=== PATIENT | female | born 1935 | race Caucasian/White ===

== ENCOUNTER 2016-10-11 18:09 | Emergency (ER) | payer OTHER ==
[~2016-10-11] VITALS: Wt 71.5 kg
[~2016-10-11 18:09] MED LIST: ALLO300T2 PO; BACL10TA PO; CALC500T12 PO; GABA100C14 PO; GLYB2.5T2 PO; HYD25 PO; LEVO200T6 PO; METF850T PO; METO-429 PO
[2016-10-11 20:35] LABS: BASOPHILS % 0.4 % (0.0-2.0); EOSINOPHILS # 0.1 10^3/ul (0.0-0.5); HEMATOCRIT 43.6 % (37.0-47.0); HEMOGLOBIN 14.4 g/dl (12.0-16.0); LYMPHOCYTES % 20.6 % (15.0-51.0); MEAN CORPUSCULAR HEMOGLOBIN 29.3 pg (29.0-33.0); MEAN CORPUSCULAR VOLUME 88.8 fl (82.0-101.0); MEAN PLATELET VOLUME 10.4 fl (7.4-10.4); MONOCYTE # 0.6 10^3/ul (0.3-0.9); MONOCYTES % 5.9 % (0.0-11.0); NEUTROPHILS % 71.7 % (39.0-77.0); PLATELET COUNT 289 10^3/UL (140-415); RED BLOOD COUNT 4.91 10^6/ul (4.20-5.40); RED CELL DISTRIBUTION WIDTH 13.1 % (11.5-14.5); WHITE BLOOD COUNT 9.7 10^3/ul (4.8-10.8)
--- NOTE | 2016-10-11 21:00 | RADRPT ---
PROCEDURE: XR Foot. CLINICAL INDICATION: 81-year-old female. Query osteomyelitis. Decubitus ulcer. Melanoma.. TECHNIQUE: Three views of the left foot. COMPARISON: None available. FINDINGS: There is a marker over the lateral aspect of the hind foot. A skin ulcer is not identified on x-ray . Negative for bony destruction or periosteal reaction to indicate osteomyelitis. 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 There is mild midfoot osteoarthritis. There is a large bone spur at the base of the calcaneus with dystroph ic calcification in the plantar fascia and Achilles tendon. IMPRESSION: Negative for evidence of periosteal reaction or bony destruction to indicate osteomyelitis. The ski n ulcer is not well seen with x-ray.. RPTAT: HCTS Physician Darya Date Time Electronically viewed and signed by Elkin Quintana Physician on 10/11/2016 20:59 /
[2016-10-11 21:04] LABS: ALBUMIN 4.5 g/dl (3.3-4.9); ALBUMIN/GLOBULIN RATIO 1.55; BILIRUBIN,INDIRECT 0.3 mg/dl (0-1.1); BILIRUBIN,TOTAL 0.3 mg/dl (0.2-1.3); CALCIUM 8.4 mg/dl (8.4-10.2); CREATININE 0.5 mg/dl (0.44-1.00); POTASSIUM 4.2 mmol/L (3.5-5.1); TOTAL PROTEIN 7.4 g/dl (6.1-8.1)
--- NOTE | 2016-10-11 21:20 | ERD ---
ER Documentation Chief Complaint Date/Time DATE: 10/11/16 TIME: 21:07 Chief Complaint RECHECK ON NON-HEALING WOUND ON LEFT FOOT, NO PAIN REPORTED HPI This 81-year-old female presents to emergency department with family with reports of a left outer heel ulcer. Patient was seen by her primary care physician and sent to emergency department for evaluation. Patient denies the area is painful to touch. She denies difficulty ambulating, fever, or chills. Patient is a diabetic. Family reports they just noticed it lesion today unsure of how long it actually has been there. ROS All systems reviewed and are negative except as per history of present illness. Medications Home Meds Reported Medications Calcium Carbonate* (Oysco-500*) 1 Tab Tablet, 1 TAB PO DAILY, TAB 11/18/13 Levothyroxine Sodium* (Levothyroxine Sodium*) 200 Mcg Tablet, 200 MCG PO AC BREAKFAST, TAB 11/18/13 Baclofen* (Baclofen*) 10 Mg Tablet, 10 MG PO HS, TAB 11/18/13 Metoprolol Tartrate* (Lopressor*) 50 Mg Tablet, 50 MG PO DAILY, TAB 11/18/13 Glyburide* (Glyburide*) 2.5 Mg Tablet, 2.5 MG PO DAILY, TAB 11/18/13 Metformin Hcl* (Metformin Hcl*) 850 Mg Tablet, 850 MG PO TID, TAB 1 1/2 TAB 11/18/13 Hydrochlorothiazide* (Hydrochlorothiazide*) 25 Mg Tab, 25 MG PO DAILY, TAB 11/18/13 Gabapentin* (Gabapentin*) 100 Mg Capsule, 100 MG PO TID, CAP 11/18/13 Allopurinol* (Allopurinol*) 300 Mg Tablet, 300 MG PO DAILY, TAB 11/18/13 Allergies Allergies: Coded Allergies: No Known Allergy (Unverified , 11/18/13) PMhx/Soc History of Surgery: Yes (see note) Anesthesia Reaction: No Hx Neurological Disorder: No Hx Respiratory Disorders: No Hx Cardiac Disorders: Yes (HTN) Hx Psychiatric Problems: No Hx Miscellaneous Medical Probl: Yes (DM) Hx Alcohol Use: No Hx Substance Use: No Hx Tobacco Use: No Smoking Status: Never smoker Physical Exam Vitals Vital Signs Date Time Temp Pulse Resp B/P Pulse Ox O2 Delivery O2 Flow Rate FiO2 10/11/16 21:30 97.0 75 16 156/73 97 Room Air 10/11/16 18:14 97.0 84 17 185/79 98 Physical Exam Const: Well-nourished, well-hydrated, well-appearing in no acute distress Head: Atraumatic Eyes: Normal Conjunctiva, PERRLA, EOMI ENT: Normal External Ears, Nose and Mouth mucous membranes moist. Neck: Full range of motion..~ No meningismus. Resp: Chest rises and falls symmetrically, respirations even and unlabored no respiratory distress Cardio: Abd: Skin: Left heel outer aspect presents with a 1.5 cm x 0.7 cm black lesion soft nontender to palpation on a brown plaque also soft and nontender, skin is intact, no evidence of oozing or discharge from the lesion site. Skin is warm to touch normal temperature. Back: Ext: Lower Extremity -left foot Skin: No laceration. Left heel outer aspects presents with a 1.5 cm x 0.7 cm black lesion soft nontender to palpation on a brown plaque also soft and nontender. Compartments: Soft Motor: Full active range of motion hip/knee/ankle/foot Sensation: Intact to light touch FDWS/MF/LF/P surfaces. Bones: Nontender pelvis/knee/proximal tibia/ malleoli/foot Joints: No effusion or laxity Pulses/Perfusion: 2+ DP, Capillary refill < 2 seconds Neur: Awake and alert Psych: Normal Mood and Affect Result Diagram: 10/11/16201910/11/162019 Results 24 hrs Laboratory Tests Test 10/11/16 20:20 10/11/16 20:23 White Blood Count 9.710^3/ul Red Blood Count 4.9110^6/ul Hemoglobin 14.4g/dl Hematocrit 43.6% Mean Corpuscular Volume 88.8fl Mean Corpuscular Hemoglobin 29.3pg Mean Corpuscular Hemoglobin Concent 33.0g/dl Red Cell Distribution Width 13.1% Platelet Count 78084^3/UL Mean Platelet Volume 10.4fl Neutrophils % 71.7% Lymphocytes % 20.6% Monocytes % 5.9% Eosinophils % 1.0% Basophils % 0.4% Nucleated Red Blood Cells % 0.0/100WBC Neutrophils # 7.010^3/ul Lymphocytes # 2.010^3/ul Monocytes # 0.610^3/ul Eosinophils # 0.110^3/ul Basophils # 0.010^3/ul Nucleated Red Blood Cells # 0.010^3/ul Sodium Level 144mmol/L Potassium Level 4.2mmol/L Chloride Level 100mmol/L Carbon Dioxide Level 28mmol/L Anion Gap 20 Blood Urea Nitrogen 15mg/dl Creatinine 0.50mg/dl Glucose Level 124mg/dl Calcium Level 8.4mg/dl Total Bilirubin 0.3mg/dl Direct Bilirubin 0.00mg/dl Indirect Bilirubin 0.3mg/dl Aspartate Amino Transf (AST/SGOT) 27IU/L Alanine Aminotransferase (ALT/SGPT) 34IU/L Alkaline Phosphatase 80IU/L Total Protein 7.4g/dl Albumin 4.5g/dl Globulin 2.90g/dl Albumin/Globulin Ratio 1.55 Lactic Acid Level 1.8mmol/L Procedures/MDM PROCEDURE: XR Foot. CLINICAL INDICATION: 81-year-old female. Query osteomyelitis. Decubitus ulcer. Melanoma.. TECHNIQUE: Three views of the left foot. COMPARISON: None available. FINDINGS: There is a marker over the lateral aspect of the hind foot. A skin ulcer is not identified on x-ray. Negative for bony destruction or periosteal reaction to indicate osteomyelitis. 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 There is mild midfoot osteoarthritis. There is a large bone spur at the base of the calcaneus with dystrophic calcification in the plantar fascia and Achilles tendon. IMPRESSION: Negative for evidence of periosteal reaction or bony destruction to indicate osteomyelitis. The skin ulcer is not well seen with x-ray.. Physician Darya Date Time Electronically viewed and signed by Physician Darya on 10/11/2016 20: 59 This 81-year-old female presents to emergency department for evaluation of a skin lesion on her left foot patient was seen at primary physician's office and sent to emergency department for evaluation. Patient is a diabetic, skin is clean and dry without evidence of other lesions fissures. Patient denies pain, lesion is also soft, a foot x-ray obtained to rule out osteomyelitis, with documentation negative for evidence of periosteal reaction or bony destruction indicating osteomyelitis. This skin ulcer is not well seen within x-ray. No suspicion for osteomyelitis, cellulitis, DVT, compartment syndrome, or fracture of any kind. Patient will be sent to amputation and wound center for further evaluation should follow-up with primary care physician for referral to dermatology if lesion is cleared by wound clinic. Patient and family verbalized understanding, instructed to return to emergency department if wound becomes painful, tender, starts oozing discharge. I feel the patient is stable for discharge at this time. I have discussed results, examination findings, the treatment plan with the patient and family present prior to discharge. Indications for emergent reevaluation, side effects of medication were also discussed. All questions were answered. Patient verbalizes understanding and agrees with plan of care. Departure Diagnosis: Primary Impression: Heel lesion Condition: Good Patient Instructions: Skin Ulcer, Simple Referrals: [facility] Additional Instructions: Thank you for for coming to [facility] for your care today. Please ask your nurse or provider if you have questions about your care today and do not leave until all your questions have been answered. Please use any medications given as directed and follow-up with your doctor (or the doctor you were referred to) in the next 2-3 days. If you do not have a primary care doctor you may follow up at the [facility] (listed below). You may also use motrin and tylenol as needed for fever and/or pain unless instructed otherwise by your provider or nurse. Indications for more urgent follow-up have been discussed, but you may return to the Emergency Department at ANY time for any worrisome or worsening symptoms. If you have abdominal pain, please know that no test or exam you received is perfect and you should follow up within 8 hours for continued pain. If you had any imaging studies today, such as an X-Ray or CT Scan, these studies will be reviewed later by a radiologist. You will be called if there are important findings that were not identified today, so make sure the contact information you provided at registration is correct. If you received any narcotic pain control medicine today, such as Vicodin, Morphine or Dilaudid, your coordination and judgment may be affected for a number of hours. Please do not drive or operate heavy machinery, and you may want someone to assist you at home. If you were given a prescription for narcotic medication, be aware that it is very addictive- use sparingly and only if necessary. SHERIDAN ROCHA Oct 11, 2016 21:19
[2016-10-11 21:30] VITALS: BP 156/73; PULSE 75; RESP 16; TEMP 97
== END 2016-10-11 21:35 | disposition home or self-care (01) ==
LOC: FTE 18:09
DX: L98.9 Disorder of the skin and subcutaneous tissue, unspecified (principal); I10 Essential (primary) hypertension; E11.9 Type 2 diabetes mellitus without complications; Z79.84 Long term (current) use of oral hypoglycemic drugs
CPT/HCPCS: 73630; 80053; 83605; 85025; 87040; Z7502

== ENCOUNTER 2017-01-29 13:09 | Day surgery (SDC) | payer OTHER ==
[~2017-01-29] VITALS: Ht 147.3 cm; Wt 70.8 kg
[~2017-01-29 13:09] MED LIST changes: -HYD25 PO; +HYDR25TA6 PO
[2017-01-29 14:12] VITALS: Ht 147.3 cm; Wt 70.8 kg
[2017-01-29 14:14] VITALS: BP 148/73; PULSE 94; RESP 16
[2017-01-29] MEDS ORDERED: CEFAZOLIN 2 GM/50 ML (PMX) 50 ML IVPB SCH (15:00)
[2017-01-29] MEDS ORDERED: POLYMYXIN/BACITRACIN 1L IRRIG ONE (16:26)
[2017-01-29] MEDS ORDERED: ONDANSETRON 4 MG INJ ONE (16:27)
[2017-01-29] MEDS ORDERED: LIDOCAINE 2% (SDV) 5 ML INJ ONE (16:27)
[2017-01-29] MEDS ORDERED: CEFAZOLIN 1 GM INJ ONE (16:27)
[2017-01-29] MEDS ORDERED: NEOSTIGMINE 3 MG/3 ML SYRINGE ONE (16:27)
[2017-01-29] MEDS ORDERED: PROPOFOL 20 ML ONE (16:28)
[2017-01-29] MEDS ORDERED: hydrALAzine 20 MG INJ IV PRN (16:30)
[2017-01-29] MEDS ORDERED: MEPERIDINE 25 MG INJ IV PRN (16:30)
[2017-01-29] MEDS ORDERED: ONDANSETRON 4 MG INJ IV PRN (16:30)
[2017-01-29] MEDS ORDERED: METOCLOPRAMIDE 10 MG INJ IV PRN (16:30)
[2017-01-29] MEDS ORDERED: FENTAnyl 50 MCG/ML VIAL IV PRN ×3 (16:30)
[2017-01-29] MEDS ORDERED: EPHEDrine SULFATE 50 MG/5 ML SYG IV PRN (16:30)
[2017-01-29] MEDS ORDERED: LABETALOL HCL 20MG INJ IV PRN (16:30)
[2017-01-29] MEDS ORDERED: OXYCODONE/ACETAMINOPHEN (5/325) TAB PO PRN ×2 (16:30)
[2017-01-29] MEDS ORDERED: MIDAZOLAM 1 MG/ML 2 ML INJ IV PRN (16:30)
[2017-01-29] MEDS ORDERED: DIPHENHYDRAMINE 50 MG INJ IV PRN (16:30)
[2017-01-29] MEDS ORDERED: HYDROmorphONE (0.2 MG/ML) 10ML SYG IV PRN ×3 (16:30)
--- NOTE | 2017-01-29 16:35 | HPN ---
Date/Time of Note Date/Time of Note DATE: 01/29/17 TIME: 16:35 Interval H&P Admission Note Pt. seen H&P reviewed: No system changes ANASTASIA ROSALES DPM Jan 29, 2017 16:35
[2017-01-29] MEDS ORDERED: POLYMYXIN/BACITRACIN 1L IRRIG IRR ONE (17:11)
[2017-01-29] MEDS ORDERED: BUPIVACAINE 0.25% (MPF) 30 ML INJ ONE (17:20)
[2017-01-29] MEDS ORDERED: METOCLOPRAMIDE 10 MG INJ ONE (17:20)
--- NOTE | 2017-01-29 17:38 | OPR ---
Date/Time of Note Date/Time of Note DATE: 01/29/17 TIME: 17:36 Operative Report Procedure Date: Jan 29, 2017 Preoperative Diagnosis Melanocytic nevus 3 x 2.5 cm lateral left heel Postoperative Diagnosis Same Operation/Procedure Performed Surgical excision of melanocytic nevus left heel measuring 3 x 2.5 cm Surgeon see signature line Bell Cleaner None Anesthesia Type: general Estimated Blood Loss: minimal Transfusion none Specimen Pigmented melanocytic nevus lesion from the left heel area Grafts/Implants none Complications none Pt Condition Post Procedure: stable Disposition: PACU Indications This is a pleasant 81-year-old female patient who has been suffering with pigmented lesion of skin on the lateral left heel with multiple episodes of open wound and bleeding was recently biopsied and was found to be melanocytic in nature. Decision was made to excise the entire lesion and sent for pathological identification. Risks and complications of this type of surgery was discussed with patient in great detail. Risks and complications discussed included, but are not limited to, postoperative infection, postoperative pain, hardware failure, failure of surgery to correct the problem, need for additional surgical procedures, deep venous thrombosis, limb loss and loss of life. Patient understands the discussion and agrees to the procedure. An informed consent was signed, obtained and placed in the chart. No guarantees or warrantees was given or implied as to the outcome of the procedure either in verbal or written form. Procedure Description The patient was seen in the preoperative area. The proposed surgery was discussed with patient in great detail. Risks and complications of this type of surgery was discussed with patient in great detail. Opportunity was given to patient to ask questions and all questions were answered. The patient acknowledges understanding of the discussion. An informed consent was then obtained, signed and placed in the chart. Patient was taken to the operating room and was placed on the operating table in the supine position. All bony prominences were padded properly. A timeout was called by the circulating nurse. Everyone in the operating room was agreeable to the timeout. The patient was then placed under general anesthesia by the anesthesiologist. Attention was directed to the lateral left heel. A pigmented lesion was present measuring 3 x 2 half centimeters. I included about 4 mm of normal margin of skin and marked the area of for excision. Using a #10 blade, the skin was incised along the marked skin marking. Bleeders were cauterized as necessary. The skin was then carefully excised and passed the back table and sent in formalin to pathology. Prior to the surgery I had discussed with the pathologist and his recommendation was to place the specimen in formalin rather than a frozen section. Bleeders were cauterized as necessary. The wound was flushed with copious amounts of sterile normal saline. Sterile dressing was applied with Xeroform and dry sterile gauze. Postoperative injection of 0.5% Marcaine plain was given. The patient tolerated the procedure and anesthesia well. She was transferred to the recovery room with vital signs stable and Vasser status intact to the left lower extremity. Patient will be sent home after postoperative monitoring. Patient is to follow-up in the office. Postoperative orders are written. Prescription was given. Patient will be seen in 1 week for follow-up. ANASTASIA ROSALES DPM Jan 29, 2017 17:38
[2017-01-29 17:39] VITALS: BP 123/61; RESP 14
[2017-01-29 17:44] VITALS: BP 111/67; PULSE 74; RESP 27
[2017-01-29 17:49] VITALS: BP 112/58; PULSE 68; RESP 20
[2017-01-29 18:00] VITALS: BP 132/73; PULSE 71; RESP 17
[2017-01-29 18:50] VITALS: BP 135/80; PULSE 74; RESP 18
== END 2017-01-29 18:50 | disposition home or self-care (01) ==
LOC: SDS 13:09
PROVIDERS: ATTEND Podiatrist Foot & Ankle Surgery
DX: D22.72 Melanocytic nevi of left lower limb, including hip (principal); I10 Essential (primary) hypertension; E11.9 Type 2 diabetes mellitus without complications; E78.5 Hyperlipidemia, unspecified; E03.9 Hypothyroidism, unspecified; F32.9 Major depressive disorder, single episode, unspecified; M54.5 Low back pain; M81.0 Age-related osteoporosis without current pathological fracture; H40.9 Unspecified glaucoma; F41.9 Anxiety disorder, unspecified; L98.9 Disorder of the skin and subcutaneous tissue, unspecified; Z83.3 Family history of diabetes mellitus; Z82.49 Family history of ischemic heart disease and other diseases of the circulatory system; Z79.82 Long term (current) use of aspirin; Z79.84 Long term (current) use of oral hypoglycemic drugs
CPT/HCPCS: 11424; 82962; 88304; J0690; J2405; J2765; L3260; Z7512; Z7610; J2710